=== PATIENT | male | born 1980 | race Two or more races ===

== ENCOUNTER 2023-12-20 15:47 | Emergency (ER) | payer OTHER ==
[~2023-12-20] VITALS: Ht 188 cm; Wt 117.9 kg
[2023-12-20] MEDS ORDERED: KETOROLAC TROMETHAMINE 60 MG VIAL IM ONE (17:45)
[2023-12-20] MEDS ORDERED: ORPHENADRINE CITRATE 30 MG/ML AMPUL IM ONE (17:45)
== END 2023-12-20 20:29 | disposition home or self-care (01) ==
LOC: ER 15:47
DX: S13.8XXA Sprain of joints and ligaments of other parts of neck, initial encounter (principal); X58.XXXA Exposure to other specified factors, initial encounter; Y93.89 Activity, other specified; Y92.69 Other specified industrial and construction area as the place of occurrence of the external cause; Y99.8 Other external cause status; I10 Essential (primary) hypertension